=== PATIENT | male | born 1965 | race Caucasian/White ===

== ENCOUNTER 2016-06-25 20:29 | Inpatient (IN) | payer MEDICAID ==
[~2016-06-25] VITALS: Ht 177.8 cm; Wt 96.4 kg
[2016-06-25 21:35] LABS: Basophils # (auto) 0.1 uL; Basophils % (auto) 1.1 % (0.0-2.0); Eosinophils # (auto) 0.1 uL; Eosinophils % (auto) 1.3 % (0.0-7.0); Hematocrit 44.6 % (41.0-53.0); Hemoglobin 14.6 g/dL (13.5-17.5); Lymphocytes # (auto) 1.5 uL; Lymphocytes % (auto) 18.2 % (10.0-50.0); Mean Corpuscular Hemoglobin 28.1 pg (28.0-32.0); Mean Corpuscular Hgb Conc. 32.7 g/dL (32.0-36.0); Mean Corpuscular Volume 85.8 fL (80.0-100.0); Mean Platelet Volume 8.7 fL (7.4-10.4); Monocytes # (auto) 0.5 uL; Monocytes % (auto) 6.4 % (0.0-12.0); Neutrophils # (auto) 5.9 uL; Platelet Count (auto) 413 10^3/uL (140-450); Red Cell Distribution Width 13.6 % (11.6-16.0); White Blood Cell 8.1 10^3/uL (4.4-10.8)
[2016-06-25 21:40] LABS: BUN/Creatinine Ratio 5.8; Calcium 12.9 mg/dL (8.5-10.1)
[2016-06-25 21:43] LABS: Bilirubin, Total 1.1 mg/dL (0.2-1.0)
[2016-06-26] MEDS ORDERED: SODIUM CHLORIDE 0.9% 1,000 ML IV ONE (06:59)
[2016-06-26] MEDS ORDERED: FUROSEMIDE 40 MG/4 ML VIAL IV ONE (07:00)
[2016-06-26] MEDS ORDERED: NALBUPHINE HCL 10 MG/1ml INJECTION IV ONE (07:00)
[2016-06-26] MEDS ORDERED: methylPREDNISolone SOD SUCC 125 MG/2 ML VL IV ONE (07:00)
[2016-06-26] MEDS ORDERED: POTASSIUM CHL 10% (20 MEQ/15ML) ORAL SOLN PO ONE (07:00)
[2016-06-26] MEDS ORDERED: METOCLOPRAMIDE HCL 5MG/ml INJ 2ml VIAL IV ONE (07:00)
[2016-06-26 08:23] LABS: Urine RBC None Seen /hpf (0 - 3)
[2016-06-26 08:35] LABS: Urine Blood Negative /uL (Negative); Urine Color Yellow (Yellow); Urine Glucose TRACE mg/dL (Normal); Urine Hyaline Cast MANY /lpf (0 - 2); Urine Mucus FEW (None Seen); Urine Nitrite Negative (Negative); Urine Urobilinogen Normal (Negative); Urine pH 5.5 (5.0-8.0)
[2016-06-26 08:46] LABS: Urine Bilirubin Negative (Negative); Urine Ketone 3+ (Negative)
[2016-06-26] MEDS ORDERED: DEXTROSE (50%) 50ML SYRG IV PRN (12:00)
[2016-06-26] MEDS ORDERED: MORPHINE SULF INJ 2 MG/ML SYRINGE 1ML IV PRN (12:00)
[2016-06-26] MEDS ORDERED: cloNIDine HCL 0.1 MG TAB PO PRN (12:00)
[2016-06-26] MEDS ORDERED: ACETAMINOPHEN 325 MG TAB PO PRN (12:00)
[2016-06-26] MEDS ORDERED: NITROGLYCERIN 0.4 MG SL TAB SL PRN (12:00)
[2016-06-26] MEDS ORDERED: cefTRIAXone 1GM/50ML D5W 50 ML IV ONE (12:00)
[2016-06-26] MEDS ORDERED: HYDROcodone-ACET 5/325MG TAB PO PRN (12:00)
[2016-06-26] MEDS ORDERED: METOCLOPRAMIDE HCL 10 MG TAB PO ONE (12:15)
[2016-06-26] MEDS ORDERED: LISINOPRIL 5 MG TAB PO ONE (12:15)
[2016-06-26] MEDS ORDERED: MULTIPLE VITAMIN TAB PO ONE (12:15)
[2016-06-26] MEDS ORDERED: FAMOTIDINE 20 MG TAB PO ONE (12:15)
[2016-06-26] MEDS ORDERED: metFORMIN HYDROCHLORIDE 500 MG TAB PO ONE (12:15)
[2016-06-26] MEDS ORDERED: glipiZIDE 5 MG TAB PO ONE (12:15)
[2016-06-26 14:16] VITALS: BP 145/92
[2016-06-26 14:32] VITALS: BP 128/74
[2016-06-26] MEDS: metroNIDAZOLE 500MG/100ML 100 ML IV SCH ×2 (14:54→21:16)
[2016-06-26] MEDS ORDERED: LISI-646 PO (16:22)
[2016-06-26] MEDS ORDERED: GLIP-115 PO (16:22)
[2016-06-26] MEDS ORDERED: LOVA40TA72 PO (16:22)
[2016-06-26] MEDS ORDERED: EMPA1TAB PO (16:22)
[2016-06-26] MEDS ORDERED: METF-316 PO (16:22)
[2016-06-26 16:39] VITALS: BP 134/78
[2016-06-26] MEDS: METOCLOPRAMIDE HCL 10 MG TAB PO SCH ×2 (16:59→21:18)
[2016-06-26] MEDS: ACCU-CHEK COMFORT CURVE STRIP VI SCH ×2 (16:59→21:18)
[2016-06-26] MEDS: metFORMIN HYDROCHLORIDE 500 MG TAB PO SCH (17:00)
[2016-06-26] MEDS: InsuLIN REG 1unit/0.01ml Soln (100units/ml) SC SCH ×2 (17:00→21:18)
[2016-06-26] MEDS: SODIUM CHLORIDE 0.9% 1,000 ML IV SCH ×2 (20:31→21:16)
[2016-06-26] MEDS: ATORVASTATIN 20 MG TAB PO SCH (21:16)
[2016-06-26] MEDS: FAMOTIDINE 20 MG TAB PO SCH (21:17)
[2016-06-26] MEDS: MORPHINE SULF INJ 2 MG/ML SYRINGE 1ML IV PRN (21:19)
[2016-06-26 22:00] VITALS: BP 132/81
[2016-06-27] MEDS: SODIUM CHLORIDE 0.9% 1,000 ML IV SCH ×3 (04:49→21:53)
[2016-06-27 05:00] VITALS: BP 138/80
[2016-06-27] MEDS: metroNIDAZOLE 500MG/100ML 100 ML IV SCH ×2 (05:28→16:26)
[2016-06-27] MEDS: glipiZIDE 5 MG TAB PO SCH (06:17)
[2016-06-27] MEDS: METOCLOPRAMIDE HCL 10 MG TAB PO SCH ×4 (06:17→21:53)
[2016-06-27] MEDS: metFORMIN HYDROCHLORIDE 500 MG TAB PO SCH ×2 (06:18→18:07)
[2016-06-27] MEDS: ACCU-CHEK COMFORT CURVE STRIP VI SCH ×4 (06:18→21:54)
[2016-06-27] MEDS: InsuLIN REG 1unit/0.01ml Soln (100units/ml) SC SCH ×4 (06:18→21:53)
[2016-06-27 06:20] LABS: Basophils # (auto) 0.1 uL; Basophils % (auto) 0.6 % (0.0-2.0); Eosinophils # (auto) 0 uL; Eosinophils % (auto) 0.4 % (0.0-7.0); Hematocrit 40.5 % (41.0-53.0); Hemoglobin 13.1 g/dL (13.5-17.5); Lymphocytes # (auto) 1.5 uL; Lymphocytes % (auto) 17.1 % (10.0-50.0); Mean Corpuscular Hemoglobin 28.2 pg (28.0-32.0); Mean Corpuscular Hgb Conc. 32.3 g/dL (32.0-36.0); Mean Corpuscular Volume 87.4 fL (80.0-100.0); Mean Platelet Volume 8.3 fL (7.4-10.4); Monocytes # (auto) 0.8 uL; Monocytes % (auto) 8.5 % (0.0-12.0); Neutrophils # (auto) 6.5 uL; Neutrophils % (auto) 73.4 % (37.0-80.0); Platelet Count (auto) 328 10^3/uL (140-450); Red Cell Distribution Width 13.9 % (11.6-16.0); White Blood Cell 8.9 10^3/uL (4.4-10.8)
[2016-06-27 06:43] LABS: Albumin 3.3 g/dL (3.4-5.0); BUN/Creatinine Ratio 15.1; Calcium 10.2 mg/dL (8.5-10.1); Potassium 3.2 mmol/L (3.5-5.1)
[2016-06-27 06:46] LABS: Bilirubin, Total 0.5 mg/dL (0.2-1.0); Total Protein 7.4 g/dL (6.4-8.2)
[2016-06-27] MEDS: ONDANSETRON HCL 4 MG/2 ML VIAL IV PRN ×3 (08:59→19:58)
[2016-06-27] MEDS ORDERED: cefTRIAXone 1GM/50ML D5W 50 ML IV SCH (09:00)
[2016-06-27] MEDS: FAMOTIDINE 20 MG TAB PO SCH (09:04)
[2016-06-27] MEDS: MULTIPLE VITAMIN TAB PO SCH (09:05)
[2016-06-27] MEDS: LISINOPRIL 5 MG TAB PO SCH (09:05)
[2016-06-27] MEDS: MORPHINE SULF INJ 2 MG/ML SYRINGE 1ML IV PRN ×2 (09:08→19:58)
[2016-06-27 09:20] VITALS: BP 148/88
[2016-06-27] MEDS ORDERED: PANTOPRAZOLE SODIUM 40 MG/10 ML VIAL IV ONE (11:30)
[2016-06-27] MEDS: POTASSIUM CHL 20MEQ/100ML 100 ML IV SCH ×2 (12:19→14:20)
[2016-06-27 13:03] VITALS: BP 151/87
[2016-06-27 17:00] VITALS: BP_SYST 125; BP_SYST 154; BP_DIAS 74; BP_DIAS 90
[2016-06-27 21:50] VITALS: BP 133/73
[2016-06-27] MEDS: PANTOPRAZOLE SODIUM 40 MG/10 ML VIAL IV SCH (21:53)
[2016-06-27] MEDS: ATORVASTATIN 20 MG TAB PO SCH (21:53)
[2016-06-27] MEDS: TEMAZEPAM 15 MG CAP PO PRN (21:53)
[2016-06-28] MEDS: metroNIDAZOLE 500MG/100ML 100 ML IV SCH ×3 (00:45→18:24)
[2016-06-28 04:39] VITALS: BP 126/50
[2016-06-28 06:16] LABS: BUN/Creatinine Ratio 12.1; Calcium 10.9 mg/dL (8.5-10.1); Magnesium 1.8 mg/dL (1.6-2.6); Potassium 3.1 mmol/L (3.5-5.1)
[2016-06-28] MEDS: ACCU-CHEK COMFORT CURVE STRIP VI SCH ×3 (06:40→17:00)
[2016-06-28] MEDS: metFORMIN HYDROCHLORIDE 500 MG TAB PO SCH ×2 (06:40→18:24)
[2016-06-28] MEDS: glipiZIDE 5 MG TAB PO SCH (06:40)
[2016-06-28] MEDS: InsuLIN REG 1unit/0.01ml Soln (100units/ml) SC SCH ×4 (06:41→21:40)
[2016-06-28] MEDS: METOCLOPRAMIDE HCL 10 MG TAB PO SCH ×4 (06:41→21:35)
[2016-06-28] MEDS: SODIUM CHLORIDE 0.9% 1,000 ML IV SCH ×2 (07:30→17:30)
[2016-06-28 07:47] LABS: INR 1.11 (0.9-1.15); Prothrombin Time 11.4 sec (9.37-12.3)
[2016-06-28] MEDS: ONDANSETRON HCL 4 MG/2 ML VIAL IV PRN (08:08)
[2016-06-28] MEDS: MORPHINE SULF INJ 2 MG/ML SYRINGE 1ML IV PRN ×3 (08:11→21:34)
[2016-06-28] MEDS ORDERED: SODIUM CHLORIDE LOCK 10 ML ONE (08:39)
[2016-06-28] MEDS ORDERED: diphenhdrAMINE HCL 50 MG/1 ML VL ONE (08:39)
[2016-06-28] MEDS ORDERED: LIDOCAINE VISCOUS 2% 15ML UD ONE (08:39)
[2016-06-28 09:00] VITALS: BP 143/79
[2016-06-28] MEDS: PANTOPRAZOLE SODIUM 40 MG/10 ML VIAL IV SCH (09:29)
[2016-06-28] MEDS: LISINOPRIL 5 MG TAB PO SCH (10:00)
[2016-06-28] MEDS ORDERED: POTASSIUM CHLORIDE 40 MEQ, LIDOCAINE 1% (LOCAL ANESTH.) 4 ML in SODIUM CHL 0.9% 250 ML IV ONE (10:00)
[2016-06-28] MEDS: MULTIPLE VITAMIN TAB PO SCH (10:00)
[2016-06-28] MEDS: MIDAZOLAM HCL 5 MG/ML-1ML VIAL ONE ×2 (11:49→11:54)
[2016-06-28] MEDS: fentaNYL CITRATE 100 MCG/2 ML VL ONE ×2 (11:49→11:54)
[2016-06-28] MEDS ORDERED: MAGNESIUM SULFATE 1GM/100ML 100 ML IV ONE (12:15)
[2016-06-28] MEDS ORDERED: POTASSIUM CHL 20 Meq TABLET PO ONE (12:15)
[2016-06-28 16:37] VITALS: BP 125/87
[2016-06-28] MEDS: PANTOPRAZOLE 40 MG TAB PO SCH (21:35)
[2016-06-28] MEDS: ATORVASTATIN 20 MG TAB PO SCH (21:42)
[2016-06-28] MEDS: TEMAZEPAM 15 MG CAP PO PRN (21:42)
[2016-06-28 22:00] VITALS: BP 126/79
[2016-06-29] MEDS: ACCU-CHEK COMFORT CURVE STRIP VI SCH ×3 (00:55→11:23)
[2016-06-29] MEDS: metroNIDAZOLE 500MG/100ML 100 ML IV SCH ×2 (01:37→09:44)
[2016-06-29] MEDS: SODIUM CHLORIDE 0.9% 1,000 ML IV SCH ×2 (03:30→04:08)
[2016-06-29] MEDS: MORPHINE SULF INJ 2 MG/ML SYRINGE 1ML IV PRN ×2 (03:53→09:50)
[2016-06-29 05:24] VITALS: BP 136/86
[2016-06-29] MEDS: InsuLIN REG 1unit/0.01ml Soln (100units/ml) SC SCH ×2 (06:35→11:23)
[2016-06-29] MEDS: METOCLOPRAMIDE HCL 10 MG TAB PO SCH (06:49)
[2016-06-29] MEDS: glipiZIDE 5 MG TAB PO SCH (06:49)
[2016-06-29] MEDS: metFORMIN HYDROCHLORIDE 500 MG TAB PO SCH (06:49)
[2016-06-29 09:17] VITALS: BP 141/79
[2016-06-29] MEDS: MULTIPLE VITAMIN TAB PO SCH (09:45)
[2016-06-29] MEDS: LISINOPRIL 5 MG TAB PO SCH (09:46)
[2016-06-29] MEDS: PANTOPRAZOLE 40 MG TAB PO SCH (09:46)
[2016-06-29] MEDS ORDERED: PANT40T PO (11:55)
[2016-06-29 12:13] VITALS: BP 141/79
[2016-06-29 12:54] VITALS: BP 141/79
[2016-06-29 13:57] VITALS: BP 133/85
== END 2016-06-29 13:20 | disposition home or self-care (01) | DRG 241 ==
LOC: EDBD 20:29 → ER 20:37 → TELE 20:38 → TELE-CENTR 06-26 12:57 → CENTRAL 06-29 02:47
PROVIDERS: ADMIT Internal Medicine; ATTEND Internal Medicine
PROC: 0DB68ZX Excision of Stomach, Via Natural or Artificial Opening Endoscopic, Diagnostic (ICD-10-PCS; principal; 2016-06-28 11:46)
DX: K29.80 Duodenitis without bleeding (principal); K85.90 Acute pancreatitis without necrosis or infection, unspecified; E11.21 Type 2 diabetes mellitus with diabetic nephropathy; E11.65 Type 2 diabetes mellitus with hyperglycemia; E87.1 Hypo-osmolality and hyponatremia; K86.1 Other chronic pancreatitis; N39.0 Urinary tract infection, site not specified; K29.70 Gastritis, unspecified, without bleeding; E78.5 Hyperlipidemia, unspecified; M19.90 Unspecified osteoarthritis, unspecified site; E86.0 Dehydration; I12.9 Hypertensive chronic kidney disease with stage 1 through stage 4 chronic kidney disease, or unspecified chronic kidney disease; N18.2 Chronic kidney disease, stage 2 (mild); E11.22 Type 2 diabetes mellitus with diabetic chronic kidney disease; E66.9 Obesity, unspecified; E83.52 Hypercalcemia; E87.6 Hypokalemia; Z83.3 Family history of diabetes mellitus; Z88.5 Allergy status to narcotic agent; Z79.899 Other long term (current) drug therapy; Z68.30 Body mass index [BMI] 30.0-30.9, adult
CPT/HCPCS: 36415; 71020; 74176; 76700; 78226; 80048; 80053; 80061; 81001; 82150; 82962; 83036; 83690; 83735; 84132; 84484; 85025; 85610; 85730; 87086; 87493; 93005; 96361; 96374; 96375; C9113; G0434; J0696; J1815; J2001; J2250; J2405; J3480; J3490